=== PATIENT | female | born 1950 | race Two or more races ===

== ENCOUNTER 2018-11-09 13:55 | Outpatient (CLI) | payer OTHER | END 2018-11-09 14:03 | disposition home or self-care (01) | LOC: SONOGRAMA 13:55 | DX: C50.411 Malignant neoplasm of upper-outer quadrant of right female breast (principal); C50.412 Malignant neoplasm of upper-outer quadrant of left female breast; N63.13 Unspecified lump in the right breast, lower outer quadrant ==

== ENCOUNTER → 2019-08-20 | Outpatient (CLI) | payer OTHER | END | disposition home or self-care (01) | LOC: NUCLEAR 07:00 | DX: C50.412 Malignant neoplasm of upper-outer quadrant of left female breast (principal) | CPT/HCPCS: 78815; A9552 ==

== ENCOUNTER 2020-08-25 09:11 | Outpatient (CLI) | payer OTHER | END 2020-08-25 09:25 | disposition home or self-care (01) | LOC: NUCLEAR 09:11 | PROVIDERS: ATTEND Internal Medicine Hematology & Oncology | DX: C50.411 Malignant neoplasm of upper-outer quadrant of right female breast (principal); C50.412 Malignant neoplasm of upper-outer quadrant of left female breast; Z08 Encounter for follow-up examination after completed treatment for malignant neoplasm; Z85.71 Personal history of Hodgkin lymphoma | CPT/HCPCS: 78816; A9552 ==

== ENCOUNTER 2022-07-10 07:34 | Outpatient (CLI) | payer OTHER | END 2022-07-10 07:38 | disposition home or self-care (01) | LOC: NUCLEAR 07:34 | PROVIDERS: ATTEND Internal Medicine Hematology & Oncology | DX: C50.912 Malignant neoplasm of unspecified site of left female breast (principal); C50.911 Malignant neoplasm of unspecified site of right female breast; R91.1 Solitary pulmonary nodule; Z88.2 Allergy status to sulfonamides | CPT/HCPCS: 78815; A9552 ==

== ENCOUNTER 2024-07-01 08:08 | Outpatient (CLI) | payer OTHER | END 2024-07-01 08:09 | disposition home or self-care (01) | LOC: NUCLEAR 08:08 | PROVIDERS: ATTEND Internal Medicine Hematology & Oncology | DX: C50.411 Malignant neoplasm of upper-outer quadrant of right female breast (principal); C50.412 Malignant neoplasm of upper-outer quadrant of left female breast; Z17.0 Estrogen receptor positive status [ER+] | CPT/HCPCS: 78815; A9552 ==

== ENCOUNTER 2025-02-09 07:06 | Outpatient (CLI) | payer OTHER | END 2025-02-09 07:07 | disposition home or self-care (01) | LOC: NUCLEAR 07:06 | DX: C79.51 Secondary malignant neoplasm of bone (principal) | CPT/HCPCS: 78306; A9503 ==

== ENCOUNTER 2025-07-27 07:32 | Outpatient (CLI) | payer OTHER | END 2025-07-27 07:33 | disposition home or self-care (01) | LOC: NUCLEAR 07:32 | PROVIDERS: ATTEND Internal Medicine Hematology & Oncology | DX: C50.412 Malignant neoplasm of upper-outer quadrant of left female breast (principal); C79.51 Secondary malignant neoplasm of bone | CPT/HCPCS: 78815; A9552 ==